=== PATIENT | male | born 2000 | race Caucasian/White ===

== ENCOUNTER 2019-06-09 03:43 | Emergency (ER) | payer OTHER ==
[~2019-06-09] VITALS: Ht 185.4 cm; Wt 88.1 kg
[2019-06-09 03:46] VITALS: Ht 185.4 cm; Wt 88.1 kg
== END 2019-06-09 04:34 | disposition home or self-care (01) ==
LOC: ED 03:43
DX: B34.9 Viral infection, unspecified (principal); J06.9 Acute upper respiratory infection, unspecified
CPT/HCPCS: J1885